=== PATIENT | female | born 1945 | race Caucasian/White ===

== ENCOUNTER → 2017-04-20 | Outpatient (CLI) | payer OTHER, MEDICARE ==
--- NOTE | 2017-04-20 12:08 | DIAGNOSTIC IMAGING REPORT ---
RIGHT KNEE 2 VIEWS CLINICAL HISTORY: Right knee pain COMPARISON: None. DISCUSSION: There are moderately advanced osteoarthritic changes present. Two-view shaped brenda are visualized within the medial femoral condyle. There is marked narrowing of the medial joint compartment. There is chondrocalcinosis. There is lateral translation of the tibia with respect to the femur. There are dorsal patellar spurs. There is a small joint effusion. No acute fractures are visualized IMPRESSION: 1. No acute fractures 2. Postsurgical changes 3. Moderately advanced osteoarthritic changes 4. Chondrocalcinosis 5. Lateral translation of the tibia with respect to the femur Electronically signed by: Mahendra Pelaez M.D. 04/20/2017 12:07 PM Dictated Date/Time: 04/20/2017 12:06 PM
== END | disposition home or self-care (01) ==
LOC: C.RAD1850 11:55
PROVIDERS: ATTEND Family Medicine
DX: M17.11 Unilateral primary osteoarthritis, right knee (principal); M11.261 Other chondrocalcinosis, right knee

== ENCOUNTER → 2017-06-07 | Outpatient (CLI) | payer OTHER, MEDICARE | END | disposition home or self-care (01) | LOC: C.FOODA 13:08 | PROVIDERS: ATTEND Family Medicine | DX: E66.9 Obesity, unspecified (principal) ==

== ENCOUNTER → 2017-07-03 | Outpatient (CLI) | payer OTHER, MEDICARE ==
--- NOTE | 2017-07-04 07:57 | MAMMOGRAPHY REPORT ---
BILATERAL DIGITAL SCREENING MAMMOGRAM TOMOSYNTHESIS WITH CAD: 07/03/2017 CLINICAL HISTORY: Routine screening. Patient has no complaints. TECHNIQUE: Breast tomosynthesis in addition to standard 2D mammography was performed. Current study was also evaluated with a Computer Aided Detection (CAD) system. COMPARISON: Comparison is made to exams dated: 01/14/2015 mammogram, 12/28/2011 mammogram, 06/27/2011 ultrasound, 06/27/2011 mammogram, 06/20/2011 mammogram - [facility], and 05/15/2006. BREAST COMPOSITION: There are scattered areas of fibroglandular density in both breasts. FINDINGS: There are mild to moderate vascular calcifications in both breasts. There is a stable genie -shaped biopsy marker clip in the upper outer right breast posteriorly. No suspicious mass, ssis architect ural distortion or cluster of microcalcifications is seen. IMPRESSION: ACR BI-RADS CATEGORY 2: BENIGN There is no mammographic evidence of malignancy. A 1 year screening mammogram is recommended. The pa tient will receive written notification of the results. Approximately 10% of breast cancers are not detected with mammography. A negative mammographic report should not delay biopsy if a clinically suggestive mass is present. Charity Whitmore M.D. ay/:07/03/2017 16:15:50 Gallery Or Museum Technician: Clarissa Calle, [facility] letter sent: Normal 1/2 BI-RADS Code: ACR BI-RADS Category 2: Benign
== END | disposition home or self-care (01) ==
LOC: C.MAMM 10:43
PROVIDERS: ATTEND Family Medicine
DX: Z12.31 Encounter for screening mammogram for malignant neoplasm of breast (principal); M85.851 Other specified disorders of bone density and structure, right thigh; M85.852 Other specified disorders of bone density and structure, left thigh

== ENCOUNTER 2022-01-04 05:07 | Observation (INO) ==
--- NOTE | 2021-12-15 11:09 | PAT Medication Instructions ---
Medication Instructions Date of Service December 15, 2021 Home Medications albuterol sulfate 90 mcg/actuation breath activated powder inhaler,sensor 90 mcg inhalation Q4H PRN SHORT OF BREATH atorvastatin 20 mg tablet 20 mg PO PM carvedilol 12.5 mg tablet (Coreg) 12.5 mg PO BID montelukast 10 mg tablet (Singulair) 10 mg PO DAILY PRN ALLERGY RELIEF DO NOT take the morning of surgery montelukast 10 mg tablet (Singulair) 10 mg PO DAILY PRN ALLERGY RELIEF Take morning of surgery With a small sip of water, OTHERWISE NOTHING TO EAT OR DRINK AFTER MIDNIGHT: albuterol sulfate 90 mcg/actuation breath activated powder inhaler,sensor 90 mcg inhalation Q4H PRN SHORT OF BREATH (use if needed; please bring rescue inhaler with you to hospital day of surgery if possible) carvedilol 12.5 mg tablet (Coreg) 12.5 mg PO BID Take evening before surgery albuterol sulfate 90 mcg/actuation breath activated powder inhaler,sensor 90 mcg inhalation Q4H PRN SHORT OF BREATH (if needed) atorvastatin 20 mg tablet 20 mg PO PM carvedilol 12.5 mg tablet (Coreg) 12.5 mg PO BID montelukast 10 mg tablet (Singulair) 10 mg PO DAILY PRN ALLERGY RELIEF (if needed) Other Notes If you have any questions please call us at [phone] or [phone] or [phone] or [phone]
--- NOTE | 2021-12-22 14:15 | Anesthesiology Consultation ---
Date of Service December 22, 2021 Assessment & Plan (1) Encounter for pre-operative examination: - pending final PCP clearance after review of PAT testing. - Pt's daughter and will need to accompany her DOS due to her 's severe dementia and daughter as surface lay out technician while patient is undergoing surgery. Flagged on OR sheet. - Pt requests BP check on R arm d/t L arm bursitis. - medical clearance 11/16/21: "...pre-op clearance for total right knee replacement...no chest pain or dyspnea...mild aortic insufficiency...left anterior fascicular block...pending review, she is acceptable candidate for the proposed surgery..." - cardiology office visit 08/19/21: "...functional capacity is stable and unchanged and she can still proceed at the same above stated risk...known left anterior fascicular block, mild aortic insufficiency, and preserved LV systolic function without evidence of regional wall motion abnormalities...negative stress echo for ischemia in 2011...EKG is unchanged...could proceed with surgery at a relatively low risk in the range of 1-2%with regards to cardiac complications...heart attack, dying from cardiac causes, arrhythmias and congestive heart failure..." Outpatient joint assessment: Patient is currently scheduled for inpatient pathway. If re-evaluated pending system levels during current pandemic/surgeon requests outpatient pathway, patient is not recommended candidate for outpatient joint program from anesthesia standpoint. Chart Review Chart Review: Pending: Refer to Additional Notes / Consult section and Patient seen in Pre Admission Testing Teaching & Discussion Pre-Anesthesia Teaching/Discussion Notes: Instructed NPO after midnight before surgery, except medications with 15 cc of water. Medication instructions provided according to the PAT guidelines. History Surgery Operation Date: 01/04/22 07:00 Proposed Procedures p Right Total Knee Arthroplasty with Hardware Removal - Otf Alejandre MD Height/Weight Height: 5 ft 5 in Weight: 103.6 kg Allergies Allergy/AdvReac Type Severity Reaction Status Date / Time Sulfa (Sulfonamide Allergy Unknown UNSURE, Verified 12/14/21 08:10 Antibiotics) WAS TOLD A CHILD Medications Home Medications Medication Instructions Recorded Confirmed Last Taken albuterol sulfate 90 mcg/actuation 90 mcg inhalation Q4H PRN SHORT OF 12/14/21 12/14/21 Unknown breath activated powder BREATH inhaler,sensor atorvastatin 20 mg tablet 20 mg PO PM 12/14/21 12/14/21 Unknown carvedilol 12.5 mg tablet (Coreg) 12.5 mg PO BID 12/14/21 12/14/21 Unknown montelukast 10 mg tablet 10 mg PO DAILY PRN ALLERGY RELIEF 12/14/21 12/14/21 Unknown (Singulair) Past Medical History Medical History (Updated 12/22/21 @ 15:38 by Dali Pike PA-C) Anxiety regarding surgery Asthma WEATHER RELATED>COLD MONTHS/HAS NOT USED INHALER RECENTLY Cataract, bilateral GERD (gastroesophageal reflux disease) occasional, controlled, stable per pt History of skin cancer BCC & SCC Hx of sigmoidoscopy Hyperlipidemia Myocardial Infarction abnormal EKG > 20 yrs ago, follows with Dr. Henry, most recent EKG without r eport of old infarct Neuropathy RT LEG Sciatica Patient denies h/o stroke, seizures, heart failure, DM, HTN, blood clots or blood transfusions. Exercise / Class Metabolic Activity III < 4 Walking/Shop/Light housework (denies CP or SOB with usual activities, ambulates with cane) Past Family History Family History Other No family history of adverse response to anesthesia Past Surgical History Surgical History H/O arthroscopic knee surgery RT History of bilateral tubal ligation History of tonsillectomy and adenoidectomy History of tooth extraction Past Anesthesia History No Hx of Anesthesia Complications and No Family Hx of Anesthesia Complications History of PONV No Hx of PONV and No Hx of Motion Sickness Social History Smoking Status: Never smoker Do You Dip or Chew Tobacco: No Hx Alcohol Use: Yes alcohol intake frequency: holidays/special occasions only substance use type: does not use Review of Systems Snoring, negative sleep study 8-9 yrs ago. Patient denies chest pain, shortness of breath, dyspnea on exertion, fever, chills, cough, wheezing, or palpitations. Physical Exam Vital Signs Vitals BP 174/96, re-check after patient rested in clinic 170/94 (Pt states that in certain healthcare settings such as pre-op her BP is often significantly elevated to this degree or higher, otherwise readings are typically 120-70s) P 70 TEMP 98.6 SP02 96% on RA RESP 17 Physical Full cervical extension range of motion without pain TMD 3.5 finger breadths Mallampati Score 3 Dentition: intact, several caps/crowns, denies chipped or loose teeth, implants or bridges Lungs: normal respiratory effort. Clear throughout to auscultation, no adventitious breath sounds Cardiac: regular rate and rhythm, no murmurs noted Carotid arteries: negative bruit bilat Lab Results Anesthesia Preop Results Results Anesthesia Widget: WBC 6.99 K/ul (4.8-10.8) 12/22/21 Hgb 13.6 g/dl (12.0-16.0) 12/22/21 Hct 40.4 % (34.1-44.9) 12/22/21 Plt 214 K/uL (130-400) 12/22/21 Na 139 mmol/L (136-145) 12/22/21 K 4.1 mmol/L (3.5-5.1) 12/22/21 Cl 103 mmol/L (98-107) 12/22/21 CO2 29 mmol/L (21-32) 12/22/21 BUN 17 mg/dl (6-23) 12/22/21 Creat 0.84 mg/dl (0.6-1.2) 12/22/21 Glucose Level 102 mg/dl (70-99(Fasting)) H 12/22/21 PT 11.0 Seconds (9.0-12.0) 12/22/21 PTT 26.1 Seconds (21.0-31.0) 12/22/21 INR 1.0 (0.9-1.1) 12/22/21 Urine Color Yellow 12/22/21 Urine Appearance Clear (Clear) 12/22/21 Urine pH 6.0 (4.5-7.5) 12/22/21 Urine Specific [place] 1.019 (1.000-1.030) 12/22/21 Urine Protein Negative (Negative) 12/22/21 Urine Glucose (UA) Negative (Negative) 12/22/21 Urine Ketones Negative (Negative) 12/22/21 Urine Blood Negative (Negative) 12/22/21 Urine Nitrite Negative (Negative) 12/22/21 Urine Bilirubin Negative (Negative) 12/22/21 Urine Urobilinogen Negative (Negative) 12/22/21 Urine Leukocyte Esterase Negative (Negative) 12/22/21 Blood Type O Negative 12/22/21 Antibody Screen NEGATIVE 12/22/21 Testing Electrocardiogram Date: 08/02/21 Sinus rhythm with premature atrial complexes, rate 68 bpm Incomplete RBBB Left anterior fascicular block Chest X-Ray Date: 12/22/21 No acute process Echocardiogram Date: 08/18/21 EF 65% No regional wall motion abnormalities Mild cLVH Grade I diastolic dysfunction Mild aortic insufficiency Mild tricuspid regurgitation
--- NOTE | 2021-12-23 15:33 | History & Physical Report ---
Date of Service December 23, 2021 Assessment & Plan (1) Right knee DJD: Plan: Informed written consent will be obtained to proceed with total knee arthroplasty and hardware removal on the day of surgery. Preoperative lab work, EKG and chest x-ray were ordered today. She will see PAT today. The patient is aware of the COVID-19 risks associated with surgery. She is currently asymptomatic of any COVID-19 symptoms. PDMP was checked and there are no concerning findings. She already has access to a cane and walker. She will bring them to the hospital for adjustment. Anticipate an overnight stay with discharge to home with home health services. The patient has already received cardiac and medical clearance. Postop followup appointment has been made for 01/19 at 1:30 p.m. for staple removal. The patient states she has already made arrangements for care of her animals and . I did inquire about outpatient joint surgery for this patient. She does not wish to proceed in that fashion. History of Present Illness Chief Complaint: Right knee pain Primary Care Provider: Bakari Salazar DO This 76-year-old female presents for her preoperative history and physical. She is scheduled to undergo a right knee total knee arthroplasty with hardware removal on 01/04/2022. The patient has had a longstanding history of right knee pain. It has been ongoing for several years. It has become worse with time. She previously managed it with activity modification, oral anti-inflammatories and oral pain medication. These are no longer working. She now elects to proceed with surgical intervention in hopes of improving her function and pain control. No numbness or tingling. No catching. Occasional sensation of buckling. She does note frequent night pain. Worse with weightbearing. Pain is affecting her ADLs. Preoperative imaging has been obtained. Of note, she has a history of multiple previous right knee surgeries, including ligament reconstruction with bone staple placement. Allergies Allergy/AdvReac Type Severity Reaction Status Date / Time Sulfa (Sulfonamide Allergy Unknown UNSURE, Verified 12/14/21 08:10 Antibiotics) WAS TOLD A CHILD Home Medications Medication Instructions Recorded Confirmed Type albuterol sulfate 90 mcg/actuation 90 mcg inhalation Q4H PRN SHORT OF 12/14/21 12/14/21 History breath activated powder BREATH inhaler,sensor atorvastatin 20 mg tablet 20 mg PO PM 12/14/21 12/14/21 History carvedilol 12.5 mg tablet (Coreg) 12.5 mg PO BID 12/14/21 12/14/21 History montelukast 10 mg tablet 10 mg PO DAILY PRN ALLERGY RELIEF 12/14/21 12/14/21 History (Pauletteir) Past Med/Surg History Medical History Anxiety regarding surgery Asthma WEATHER RELATED>COLD MONTHS/HAS NOT USED INHALER RECENTLY Cataract, bilateral GERD (gastroesophageal reflux disease) occasional, controlled, stable per pt History of skin cancer BCC & SCC Hx of sigmoidoscopy Hyperlipidemia Myocardial Infarction abnormal EKG > 20 yrs ago, follows with Dr. 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 Physical Exam Physical Exam: Vitals: Height 161.3 cm, weight 104.8 kg, BMI 40.3, temperature 36, BP 144/84, respirations 18, O2 saturation 96% on room air, pulse 75. General: Well-developed, well-nourished, elderly white female in no acute distress. Sitting on a bed. Alert and oriented. Skin: Warm, dry, with good turgor. No rashes or lesions. No ecchymosis or erythema. No significant intra-articular effusion. HEENT: Normocephalic, atraumatic. Eyes: PERRLA. EOMI. Nares and oropharynx exams deferred due to COVID precautions. Heart: RRR. No MGR. Lungs: Clear to auscultation bilaterally. No crackles, rhonchi or wheezing. Good air movement. Abdomen: Obese. Bowel sounds present x4, soft, nontender. No organomegaly. No masses. Musculoskeletal: Right knee evaluation reveals no intra-articular effusion today. Obvious arthritic changes. She has full terminal extension. Flexion to around 82 degrees. She has focal pain with palpation over the medial and lateral joint lines, with medial being worse. Stable collateral ligaments. No defect in the patellar tendon or quadriceps tendon. Walking with an antalgic hip hike type gait. Neurologic: Gross sensation is intact across both lower extremities by soft touch. Peripheral pulses are 2+. Results & Data Results & Data ([facility]) Diagnostic Findings Radiographic imaging previously obtained shows end-stage DJD of the right knee. Periarticular osteophytes, subchondral sclerosis and joint narrowing are all present. She is bone on bone. Two retained bone brenda are present medially. Code Status & VTE Plan VTE Prophylaxis Plan VTE Prophylaxis will be ordered: Yes
[2022-01-04] MEDS ORDERED: LR 500ML BOLUS, THEN 15ML/HR IV SCH (06:00)
[2022-01-04] MEDS ORDERED: ceFAZolin 2000MG 2,000 MG/15 ML SYR IV SCH (06:00)
[2022-01-04] MEDS ORDERED: TRANEXAMIC ACID 1,000 MG **IV Pre-op IV SCH (06:00)
[2022-01-04] MEDS ORDERED: LR 60ML/HR IV SCH (06:00)
[2022-01-04] MEDS ORDERED: ROPIVACAINE 0.5% HCL/PF 150 MG, BUPIVACAINE 0.75% MPF 20 ML, EPINEPHrine 0.15 MG, Ketor... INFIL SCH (06:00)
[2022-01-04] MEDS ORDERED: MIDAZOLAM HCL 1 MG/ML 2ML VIAL ONE (06:22)
[2022-01-04] MEDS ORDERED: fentaNYL citrate 100 MCG/2 ML VIAL ONE (06:23)
[2022-01-04] MEDS ORDERED: BUPIVACAINE 0.5 % 5 MG/1 ML PF 10ML VIAL ONE (06:24)
[2022-01-04] MEDS ORDERED: ROPIVACAINE 0.5% 5 MG/ML 30 ML VIAL ONE (06:25)
--- NOTE | 2022-01-04 06:26 | History & Physical Bridge Note ---
Date of Service January 04, 2022 History & Physical Bridge Note I have examined the patient, reviewed the History & Physical and in the interval since the performance of the History & Physical I have noted the following changes of clinical significance: no changes noted
[2022-01-04] MEDS ORDERED: ORTHO JOINT ANESTHETIC ONE (06:54)
[2022-01-04] MEDS ORDERED: ATROPINE SULFATE 0.1 MG/ML 10ML SYR IV PRN (07:07)
[2022-01-04] MEDS ORDERED: fentaNYL citrate 100 MCG/2 ML VIAL IV PRN (07:07)
[2022-01-04] MEDS ORDERED: HYDROmorphone INJ 2 MG/ML SYR/VIAL IV PRN (07:07)
[2022-01-04] MEDS ORDERED: ePHEDrine sulfate 50 MG/ML AMP IV PRN (07:07)
[2022-01-04] MEDS ORDERED: ONDANSETRON INJ 2 MG/ML 2 ML VIAL IV PRN ×2 (07:07→11:34)
[2022-01-04] MEDS ORDERED: PROPOFOL IV EMULSION 10 MG/ML 20 ML VIAL IV ONE (08:03)
[2022-01-04] MEDS ORDERED: LIDOCAINE 2% MPF LOCAL 5 ML VIAL INFIL ONE (08:03)
[2022-01-04] MEDS ORDERED: ONDANSETRON INJ 2 MG/ML 2 ML VIAL ONE (08:22)
--- NOTE | 2022-01-04 08:44 | Post Operative Brief Note ---
Immediate Post Op Note v1 Date of Surgery January 04, 2022 Pre & Post Diagnosis Operation Date: 01/04/22 07:00 Pre-Op Diagnosis: Bilateral Primary Osteoarthritis of Knee Post-Op Diagnosis: Bilateral Primary Osteoarthritis of Knee I identified the patient and participated in the time-out.: Yes Procedure Operation Date: 01/04/22 07:00 Actual Procedures p Right Total Knee Arthroplasty with Hardware Removal(Right) - Otf Alejandre MD Surgeon Otf Alejandre MD Compounding Scaler Sabino/Minh/José Estimated Blood Loss 50 Findings Consistent with Post-Op Diagnosis severe djd arthrofibrosis retained hardware
--- NOTE | 2022-01-04 09:02 | Operative Report ---
Post Operative Report Pre & Post Diagnosis Operation Date: 01/04/22 07:00 Pre-Op Diagnosis: Bilateral Primary Osteoarthritis of Knee Post-Op Diagnosis: Bilateral Primary Osteoarthritis of Knee I identified the patient and participated in the time-out.: Yes Procedure Operation Date: 01/04/22 07:00 Actual Procedures p Right Total Knee Arthroplasty with Hardware Removal(Right) - Otf Alejandre MD Surgeon FARIBA Alejandre MD Parcel Carrier Sabino/Minh/José REDMOND Estimated Blood Loss 50 Findings Consistent with Post-Op Diagnosis see operative report Specimens see operative report Drains none Complications none Disposition Accompanied Patient To Recovery: Yes Indications This 76 year old female presented to the office complaints of persisting right knee pain. She had tried conservative care measures without improvement. She elected to proceed with surgical intervention after being educated about potential risks and outcomes. Preoperative imaging was obtained. Description of Procedure Patient was administered a spinal anesthetic and then taken to the operating room where she was given sedation. She was prepped and draped in the usual sterile fashion. Please see Dr. Alejandre's operative report for specifics of the procedure. I was present for the entire case from initial patient positioning through final wound closure. Assistance was provided in tissue retraction, hemostasis, trial implant placement, final implant placement, and final wound closure. Patient was taken to the recovery room in satisfactory condition. I attest to the content of the Intraoperative Record and any orders documented therein. Any exceptions are noted below.
--- NOTE | 2022-01-04 09:20 | XRay Report ---
XR knee RT 1 or 2V routine HISTORY: 76 years-old Female S/P R TKA right knee total joint arthroplasty COMPARISON: 08/15/2021 TECHNIQUE: 2 views of the right knee FINDINGS: Right knee total joint arthroplasty with patellar resurfacing. Anterior midline skin brenda are note d along with expected postoperative soft tissue swelling and deep tissue air. No acute fracture or un expected opaque foreign body identified. IMPRESSION: Total joint arthroplasty with expected postoperative changes. ACT 112: Negative or not required by law. The above report was generated using voice recognition software. It may contain grammatical, syntax o r spelling errors. Electronically signed by: Carroll Mckeon M.D. 01/04/2022 9:18 AM
--- NOTE | 2022-01-04 09:26 | Anesthesiology Progress Note ---
Date of Service January 04, 2022 Anesthesia Post Procedure Vital Signs Vital Signs: Temp Pulse Pulse Resp BP Pulse Ox O2 Del Method 01/04/22 09:20 36.0 C L 52 L 12 136/67 98 Room Air 01/04/22 09:10 57 L 14 131/67 100 Oxymask 01/04/22 09:00 36.0 C L 56 L 12 130/55 L 99 Oxymask 01/04/22 05:40 36.3 C L 70 20 184/92 H 96 Room Air O2 Flow Rate 01/04/22 09:20 01/04/22 09:10 6 01/04/22 09:00 6 01/04/22 05:40 Transfer of Care Handoff Completed per policy Notes Mental Status: alert / awake / arousable and participated in evaluation Patient Amnestic to Procedure: Yes Nausea / Vomiting: adequately controlled Pain: adequately controlled Airway Patency, RR, SpO2: stable & adequate BP & HR: stable & adequate Hydration State: stable & adequate Anesthetic Complications: no major complications apparent and Pt Satisfied with anesthetic care
--- NOTE | 2022-01-04 09:44 | Progress Notes ---
DATE OF SERVICE: 01/04/2022 SUBJECTIVE: Postop right total knee replacement with removal of hardware. She is doing well, has no major issues. She denies chest pain, shortness of breath, fever, chills, nausea, vomiting or headac he. OBJECTIVE: VITAL SIGNS: Stable. She is afebrile. Neurovascular check is limited by spinal. Wound dressing clean, dry and intact. Postoperative x-rays will be performed. At this point in time, she is doing well. ASSESSMENT: Doing well status post right knee replacement. PLAN: For home tomorrow. Continue care pathway. Job ID: [id number]
--- NOTE | 2022-01-04 09:59 | Operative Report (OR) ---
DATE OF PROCEDURE: 01/04/2022. SURGEON: Otf Alejandre MD. VALIDATION ENGINEER: Dr. Gallo. SECOND VALIDATION ENGINEER: Dr. Wilkinson. THIRD VALIDATION ENGINEER: Akshat Kumar PA-C. PREOPERATIVE DIAGNOSIS: Osteoarthritis, right knee, with severe arthrofibrosis and retained hardware . POSTOPERATIVE DIAGNOSIS: Osteoarthritis, right knee, with severe arthrofibrosis and retained hardwar e. OPERATION PERFORMED: Right total knee replacement and removal of deep hardware. PERIOPERATIVE SITUATION: Medically cleared female with intractable knee pain. X-rays revealing flaquita re disease with marked osteophytes, lateral tibial subluxation, flexion only to 80 degrees and retain ed hardware. She understands the risks and consequences. DESCRIPTION OF PROCEDURE: The patient was appropriately identified, site verified, consent verified. Antibiotics were confirmed as being given. The right lower extremity was prepped and draped in the usual routine fashion. Tourniquet was inflated to 300 mmHg after exsanguination of the limb with a rubber Esmarch bandage for a total of approximately 65 minutes. Midline exposure was not able to be used based on her old incision, the old incision was incorporated into an extended incision proximall y and distally. Full thickness flaps were raised. Minimal dissection across the front of the knee wa s performed. Parapatellar arthrotomy was performed. There was marked scarring. The patella was completely encase d and required tedious release. Once it could be retracted appropriately, the synovectomy was compl eted. The knee was then flexed after the medial release was performed and I could now get it into rou ghly 90 degrees. The brenda were then identified after all osteophytes were removed and they were r emoved. The notch was then cut open, it was completely sealed off of bone, with an osteotome and the n the cruciate remaining PCL was released. The ACL was absent. The tibia could then be subluxated. The menisci remnants were excised. The distal femur was then resected 14 mm, the proximal tibia 4 mm, the extension gap was excellent. There were osteophytes posteriorly that were removed off the femur and then a distal femoral cutting block could be applied appropriately. Once that was done, the anterior, posterior, condylar and dilia luis cuts were then made. The flexion gap was then checked. It was excellent. The posterior capsule was injected. Additional osteophytes were removed posteriorly once they were identified. Once the b ox cut was made, the distal femoral trial was seated well. The tibia was then subluxated, broached a nd reamed to a size 3, and trialing a 10 and 12.5 spacer, the 12.5 spacer gave a little bit more medi al stability, mid range flexion without losing any flexion or extension range of motion. The patella was then resected leaving 15 mm and a 38 button seated into position after the seating ho les made, everything tracked well once a superficial lateral release was performed leaving the synovi um intact. The wound was then irrigated with Betadine after all trial elements were removed. Orthom ix was injected all about the knee. The wound was Pulsavac'ed and then the permanent cemented into p osition -- tibia, femur, and patella in that order. At 12 minutes, the tourniquet deflated. At 14 mi nutes, the knee was inspected. There was no major bleeding. Overall, blood loss estimated at 50 mL or less. Once the cement was cured at 14 minutes, the knee was flexed. The trial spacer removed. No cement r emoval was required. The wound was irrigated with Pulsavac and Betadine and then the permanent liner seated. The knee reduced and closed at 40 degrees of flexion using #2 Vicryl, 2-0 Vicryl and stainl ess steel clips. Appropriate dressing applied. The patient was transferred to recovery room in sati sfactory condition, having tolerated the procedure well. SUMMARY OF IMPLANTS: Size 3 right posterior cruciate substituting femur, size 3 mobile bearing tray, size 38 patella posterior cruciate substituting, posterior stabilized, 3 x 12.5 mm poly insert, rota ting platform [employer]. ESTIMATED BLOOD LOSS: 50 mL. CRYSTALLOID: Per anesthesia. PATHOLOGY: Pending on bone. DVT prophylaxis per protocol. Job ID: [id number]
--- NOTE | 2022-01-04 10:05 | Discharge Summary (DS) ---
DATE OF ADMISSION: 01/04/2022 DATE OF DISCHARGE: Potentially 01/05/2022 CHIEF COMPLAINT: Right knee pain. HISTORY OF PRESENT ILLNESS: Longstanding problem with knees, had multiple surgeries on the right kne e, has retained hardware, has varus deformity, flexion contracture and arthrofibrosis with flexion li mited to about 75 degrees. At this point in time, wants to proceed with surgical treatment. She is admitted for a 23-hour stay with elective right total knee to be performed and hardware remova l to be performed. Hospital course to this point has been uneventful. If she does well overnight, she will be discharged tomorrow. PAST MEDICAL HISTORY: Remarkable for anxiety, asthma, cataracts, GERD, skin cancer, sigmoidoscopies, hyperlipidemia, myocardial infarction, neuropathy, sciatica, knee surgeries, tubal ligation, tonsill ectomy, tooth extraction. FAMILY HISTORY: Remarkable for coronary artery disease. SOCIAL HISTORY: Reveals she does not smoke, no secondhand exposure. She is living with her spouse. She is retired. She wears glasses. Feels safe at home. REVIEW OF SYSTEMS: Reveals no chest pain, shortness of breath, fever, chills, nausea, vomiting or he adache. ASSESSMENT: Status post right total knee replacement and removal of hardware, right knee. At this p oint in time, doing well. Continue with care pathway. Discharge to home tomorrow. Job ID: [id number]
[2022-01-04] MEDS ORDERED: ePHEDrine sulfate 50 MG/ML SYR ONE (10:51)
[2022-01-04] MEDS ORDERED: HYDROmorphone INJ 0.5 MG/0.5 ML SYR IV PRN (11:34)
[2022-01-04] MEDS ORDERED: MONTELUKAST SODIUM 10 MG TABLET PO PRN (11:34)
[2022-01-04] MEDS ORDERED: MAGNESIUM HYDROXIDE SUSP 30 ML UDC PO PRN (11:34)
[2022-01-04] MEDS ORDERED: diphenhydrAMINE 50 MG/ML VIAL IV PRN (11:34)
[2022-01-04] MEDS ORDERED: NALOXONE HCL 0.4 MG/1 ML VIAL/CARP IV PRN (11:34)
[2022-01-04] MEDS ORDERED: oxyCODONE HCL IR 5 MG TAB (IMMEDIATE RELEASE) PO PRN (11:34)
[2022-01-04] MEDS ORDERED: ALUMINUM/MAGNESIUM SUSP 30 ML UDC PO PRN (11:34)
[2022-01-04] MEDS ORDERED: SODIUM CHLORIDE 0.9% 1000ML 1,000 ML IV SCH (11:34)
[2022-01-04] MEDS ORDERED: bisacodyL 10 MG SUPP PR PRN (11:34)
[2022-01-04] MEDS ORDERED: METOCLOPRAMIDE HCL INJ 5 MG/ML 2 ML VIAL IV PRN (11:34)
[2022-01-04] MEDS ORDERED: ALBUTEROL HFA 8 GM INHALER INH PRN (11:59)
[2022-01-04] MEDS: KETOROLAC TROMETHAMINE 15 MG/ML VIAL IV SCH ×2 (12:40→18:34)
[2022-01-04] MEDS: ACETAMINOPHEN 500 MG TAB PO SCH ×2 (14:47→22:07)
[2022-01-04] MEDS: ORTHO WARFARIN NOMOGRAM SCH (15:05)
[2022-01-04] MEDS: ceFAZolin 2000MG 2,000 MG/15 ML SYR IV SCH ×2 (15:13→22:10)
[2022-01-04] MEDS ORDERED: TRANEXAMIC ACID / 0.7% NACL 1,000 MG/100 ML BAG IV SCH (15:15)
[2022-01-04] MEDS ORDERED: WARFARIN SOD 5 MG TAB PO SCH (16:00)
[2022-01-04] MEDS: ASCORBIC ACID 500 MG TAB PO SCH (17:56)
[2022-01-04] MEDS: FERROUS GLUCONATE 324 MG TAB PO SCH (17:56)
[2022-01-04] MEDS: carvediloL 12.5 MG TAB PO SCH (20:04)
[2022-01-04] MEDS: DOCUSATE SODIUM 100 MG CAP PO SCH (20:04)
[2022-01-04] MEDS ORDERED: ATORVASTATIN 20 MG TAB PO SCH (21:00)
[2022-01-04] MEDS ORDERED: SENNA 8.6 MG TAB PO SCH (21:00)
[2022-01-05] MEDS: KETOROLAC TROMETHAMINE 15 MG/ML VIAL IV SCH ×2 (00:31→06:00)
[2022-01-05] MEDS: ACETAMINOPHEN 500 MG TAB PO SCH ×2 (06:00→14:50)
--- NOTE | 2022-01-05 06:54 | Progress Notes ---
SUBJECTIVE: Postop check postoperative day #1. Doing well, sitting up in bed. She has no chest luz marina n, shortness of breath, fever, chills, nausea, vomiting or headache. Has ambulated in the room. She is taking minimal pain medication. OBJECTIVE: VITAL SIGNS: Stable. She is afebrile. Wound dressing clean, dry and intact. Neurovascular check, femoral sciatic nerve is normal. Can do a straight leg raise easily. Postop x-rays look excellent. A.m. labs are pending. ASSESSMENT AND PLAN: Status post right total knee replacement for severe deformity and severe arthro fibrosis. At this point in time, continue appropriate rehabilitation, full weightbearing, knee immob ilizer for gait to protect the wound for the first 72 hours. Coumadin per nomogram. Keep INR 1.8-2. 2. Follow up in 2 weeks. Job ID: [id number]
[2022-01-05 07:21] LABS: Hematocrit (blood only) 34.1 % (34.1-44.9); Hemoglobin 11.6 g/dl (12.0-16.0); Mean Corpuscular Hemoglobin 31.3 pg (25.0-34.0); Mean Corpuscular Volume 91.9 fL (80.0-100.0); Mean Platelet Volume 10.2 fL (9.4-12.3); Platelet Count 207 K/uL (130-400); RDW Coefficient of Variation 13.2 % (11.5-14.5); RDW Standard Deviation 44.7 fL (36.4-46.3); Red Blood Count 3.71 M/uL (3.93-5.22); White Blood Count 10.69 K/ul (4.8-10.8)
[2022-01-05 07:28] LABS: INR 1.3 (0.9-1.1); Prothrombin Time 13.3 Seconds (9.0-12.0)
[2022-01-05 07:52] LABS: Calcium 8.7 mg/dl (8.5-10.1); Creatinine Clr Calc Pharmacy 55.2 ml/min; Est GFR (African American) 62.5 ml/min; Est GFR (Non-African American) 53.9 ml/min; Potassium 3.9 mmol/L (3.5-5.1)
[2022-01-05] MEDS ORDERED: dexAMETHasone 10 MG in SYRINGE 0 ML IV SCH (08:00)
[2022-01-05] MEDS: carvediloL 12.5 MG TAB PO SCH (08:55)
[2022-01-05] MEDS: ASCORBIC ACID 500 MG TAB PO SCH (08:55)
[2022-01-05] MEDS: DOCUSATE SODIUM 100 MG CAP PO SCH (08:56)
[2022-01-05] MEDS: FERROUS GLUCONATE 324 MG TAB PO SCH (08:56)
[2022-01-05] MEDS ORDERED: MULTIVITAMIN TAB PO SCH (09:00)
--- NOTE | 2022-01-05 11:00 | Orthopedic Progress Note ---
Date of Service January 05, 2022 Assessment & Plan (1) S/P total knee arthroplasty: Plan: Pt is doing exceptionally well Dizziness most likely positional, resolved quickly Dressing was changed, placed 4x4 along incision and dressed w/ Kerlex, application of 2 ABD pads and applied Kerlex. Applied thigh high tedhose. Adivsed on continuing with dressing in place and home health my redress on Sunday. If any changes, redness, pain or drainage or bleeding to contact the office immediately. She will continue with Coumadin for DVT prophylaxis per d/c instructions Cont with pain regimen as needed Cont with ice as d/c instruction She will use walker for ambulating , has and this was adjusted by PT continue with knee immobilzer while out of bed, july d/c Sunday am. She will be d/c home today. Order was placed by Dr. Alejandre She will keep scheduled f/u w/ Akshat for staple removal. Pt verbalized understanding and is in agreement with plan (2) Right knee DJD: Admission and Anticipated Discharge Date Admission Date: January 04, 2022 Subjective Pt is a 76 y.o female who is s/p a right total knee arthroplasty post op day #1. Pt was seen this am approx 10:15 am. She was sitting upright in bedside chair just finishing up with PTLaney. She was transfered into bed, prior to being transfered pt had dizziness and became diaphoretic. She remained seated and BP was obtained, initially BP was 93/58mmHg and rechecked prior to transitioning to bed and was 120/71. HR was stable during this time and was 65-67. She denies any CP or SOB. She was able to transition into bed w/ assistance of nurse and myself, only supervision. She states she has mild pain that is 2/10 in the knee. She states she felt good with ambulating and only had mild discomfort on stairs. She feels she is safe to go home w/ spouse and daughter. She denies any vision changes, fever, chills, or drainage from incision. Review of Systems Review of Systems: please refer to HPI Physical Exam Physical Exam: General: Alert and oriented x3 pleasant answering questions appropriately Integumentary and Musculoskeletal: Dressing was intact, this was removed. dried blood on dressing, neg for any active drainage, bleeding or erythema. Incision is well approximated w/ brenda. Min edema w/ resolving ecchymosis over anterior schaffer. Knee ROM actively: 0-50. Able to do SLR w/o difficulty. Able to fully plantarflex and dorsiflex ankle. Calf is soft and nontender. Neg Joanna sign. RLE is NVI Results & Data ([facility]) Vital Signs (Past 12 Hours) Vital Signs Temp Pulse Resp BP Pulse Ox O2 Del Method 01/05/22 10:32 120/71 01/05/22 10:28 65 93/58 L 01/05/22 10:25 66 18 84/47 L 95 Room Air 01/05/22 07:25 Room Air 01/05/22 07:52 36.7 C 64 16 145/81 H 93 Room Air 01/05/22 04:18 36.5 C 72 16 145/71 H 92 Room Air
[2022-01-05] MEDS ORDERED: Nursing to Pharmacy Communication SCH (12:45)
[2022-01-05] MEDS: ORTHO WARFARIN NOMOGRAM SCH (12:51)
[2022-01-05] MEDS ORDERED: WARFARIN SOD 3 MG TAB PO SCH (16:00)
== END 2022-01-05 16:25 | disposition home health service (06) ==
LOC: PACUINP 05:07 → ASU 05:07 → 3N 11:55
DX: M17.11 Unilateral primary osteoarthritis, right knee; Z79.899 Other long term (current) drug therapy; Z88.2 Allergy status to sulfonamides; M24.661 Ankylosis, right knee